=== PATIENT | female | born 1960 ===

== ENCOUNTER 2024-11-24 06:46 | Day surgery (SDC) | payer MEDICARE, OTHER ==
[~2024-11-24] VITALS: Ht 160 cm; Wt 69.0 kg
[2024-11-24] MEDS ORDERED: ATOR20 (07:06)
[2024-11-24] MEDS ORDERED: CHLO25B (07:06)
[2024-11-24] MEDS ORDERED: Glucophage 850850 MG (07:07)
[2024-11-24] MEDS ORDERED: GLIM2 (07:07)
[2024-11-24] MEDS ORDERED: LOSA50 (07:07)
[2024-11-24] MEDS ORDERED: Lactated Ringer's 1,000 ML IV ONE ×2 (07:08→07:44)
[2024-11-24] MEDS ORDERED: propofoL 50 ML IV ONE (07:08)
[2024-11-24] MEDS ORDERED: Ondansetron HCl 2 MG / ML 2ML Vial ONE (08:32)
[2024-11-24 08:52] VITALS: BP 116/63
== END 2024-11-24 08:57 | disposition home or self-care (01) ==
LOC: ORSCSDS 06:46
PROVIDERS: Surgery
PROC: 0DJD8ZZ Inspection of Lower Intestinal Tract, Via Natural or Artificial Opening Endoscopic (ICD-10-PCS; principal; 2024-11-24 08:00)
DX: Z12.11 Encounter for screening for malignant neoplasm of colon (principal); K57.30 Diverticulosis of large intestine without perforation or abscess without bleeding; K64.1 Second degree hemorrhoids; E11.9 Type 2 diabetes mellitus without complications; I10 Essential (primary) hypertension; E78.00 Pure hypercholesterolemia, unspecified; Z79.84 Long term (current) use of oral hypoglycemic drugs; Z79.899 Other long term (current) drug therapy; Z79.4 Long term (current) use of insulin
CPT/HCPCS: 82947; J2405; J2704; J7120